=== PATIENT | male | born 1985 | race Caucasian/White ===

== ENCOUNTER 2016-07-20 10:16 | Emergency (ER) | payer OTHER ==
[2016-07-20 12:22] VITALS: BP 130/78
--- NOTE | 2016-07-20 13:17 | UC ---
Throat Pain/Nasal Harsha HPI - HPI Summary HPI Summary: Nasal congestion, L frontal pain, cough, ST starting 2-3 days ago. Has tried OTC decongestants without relief. - History of Current Complaint Chief Complaint: UCRespiratory Stated Complaint: SINUS HEADACHE Time Seen by Provider: 07/20/16 12:59 Hx Obtained From: Patient Onset/Duration: Gradual Onset, Lasting Days Severity: Moderate Cough: Productive Associated Signs & Symptoms: Positive: Sinus Discomfort, Nasal Discharge. Negative: Fever, Vomiting, Rash - Allergies/Home Medications Allergies/Adverse Reactions: Allergies Allergy/AdvReac Type Severity Reaction Status Date / Time No Known Allergies Allergy Verified 07/20/16 11:29 Home Medications: Home Medications Pseudoephedrine HCl [Sudafed 24 Hour] 240 mg PO DAILY PRN 07/20/16 [History Confirmed 07/20/16] PMH/Surg Hx/FS Hx/Imm Hx Endocrine History Of: Denies: Diabetes, Thyroid Disease Cardiovascular History Of: Denies: Cardiac Disorders, Hypertension Respiratory History Of: Denies: COPD, Asthma GI/ History Of: Denies: Ulcer - Surgical History Surgical History: None Surgery Procedure, Year, and Place: t & a; bilat tubes in ears. uretral stents/ kidney stones - Family History Known Family History: Negative: Blood Disorder - Social History Occupation: Employed Full-time Lives: With Family Alcohol Use: Rare Substance Use Type: None Smoking Status (MU): Never Smoked Tobacco Have You Smoked in the Last Year: No - Immunization History Most Recent Influenza Vaccination: none Review of Systems Constitutional: Negative Skin: Negative Eyes: Negative ENT: Sore Throat, Nasal Discharge Respiratory: Cough Cardiovascular: Negative Gastrointestinal: Negative Genitourinary: Negative Motor: Negative Neurovascular: Negative Musculoskeletal: Negative Neurological: Headache Psychological: Negative All Other Systems Reviewed And Are Negative: Yes Physical Exam Triage Information Reviewed: Yes Appearance: Well-Appearing, No Pain Distress, Well-Nourished Vital Signs: Initial Vital Signs Temp 97.7 F 07/20/16 11:30 Pulse 84 07/20/16 11:30 Resp 16 07/20/16 11:30 BP 132/84 07/20/16 11:30 Pulse Ox 100 07/20/16 11:30 Vital Signs Reviewed: Yes Eye Exam: Normal, Other - PERRL Eyes: Positive: Conjunctiva Clear ENT: Positive: Hearing grossly normal, Pharynx normal, Nasal congestion, TMs normal. Negative: Nasal drainage, Tonsillar swelling, Tonsillar exudate Dental Exam: Normal Neck exam: Normal Neck: Positive: Supple, Nontender, No Lymphadenopathy Respiratory Exam: Normal Respiratory: Positive: Chest non-tender, Lungs clear, Normal breath sounds, No respiratory distress, No accessory muscle use Cardiovascular Exam: Normal Cardiovascular: Positive: RRR, No Murmur Musculoskeletal Exam: Normal Musculoskeletal: Positive: ROM Intact Neurological Exam: Normal Neurological: Positive: Alert Psychological Exam: Normal Skin Exam: Normal Throat Pain/Nasal Course/Dx - Differential Dx/Diagnosis Provider Diagnoses: URI, likely viral. acute headache Discharge - Discharge Plan Condition: Stable Disposition: HOME Prescriptions: Naproxen [Naproxen 500 MG TABS] 500 mg PO BID #14 tab Patient Education Materials: Upper Respiratory Infection (ED), Acute Headache ( ED) Forms: *Work Release Referrals: No Primary Care Phys,NOPCP [Primary Care Provider] - Additional Instructions: Make sure you are using pseudoephedrine as a decongestant. SINUS RINSES HAVE BEEN SHOWN TO HELP IMPROVE SYMPTOMS AND SHORTEN THE DURATION OF MILD TO MODERATE SINUSITIS. [facility] MAKES A SQUEEZE BOTTLE THAT YOU CAN USE OVER THE SINK OR IN THE SHOWER. USE ONLY SALINE, AND REPEAT UP TO EVERY 2 HOURS DESIRED. ONLY USE DISTILLED WATER TO MIX UP SALINE, DO NOT USE TAP WATER. Call or return if you develop increasing fever, shortness of breath, chest pain , bloody sputum, or otherwise worsen. If you have not improved at all after several days, contact your primary care physician or return here.
== END 2016-07-20 13:22 | disposition home or self-care (01) ==
LOC: UCEAST 10:16
DX: J06.9 Acute upper respiratory infection, unspecified (principal); R51 Headache; Z87.442 Personal history of urinary calculi
CPT/HCPCS: 99212; G0463

== ENCOUNTER 2017-01-14 14:53 | Emergency (ER) | payer SELFPAY ==
--- NOTE | 2017-01-14 15:00 | ED ---
Laceration/Wound HPI - HPI Summary HPI Summary: 31 year old male presents with laceration of left 4th finger. - History of Current Complaint Stated Complaint: finger LACERATION Time Seen by Provider: 01/14/17 14:59 Hx Obtained From: Patient Mechanism of Injury: Sharp/Blunt Trauma Onset/Duration: Sudden Onset Aggravating: Movement Timing: Constant Onset Severity: Moderate Current Severity: Moderate Pain Scale Used: 0-10 Numeric - 10 - Allergy/Home Medications Allergies/Adverse Reactions: Allergies Allergy/AdvReac Type Severity Reaction Status Date / Time No Known Allergies Allergy Verified 07/20/16 11:29 PMH/Surg Hx/FS Hx/Imm Hx Previously Healthy: Yes Endocrine/Hematology History: Denies: Hx Diabetes, Hx Thyroid Disease Cardiovascular History: Denies: Hx Hypertension Respiratory History: Denies: Hx Asthma, Hx Chronic Obstructive Pulmonary Disease (COPD) GI History: Denies: Hx Ulcer - Surgical History Surgery Procedure, Year, and Place: t & a; bilat tubes in ears. uretral stents/ kidney stones Infectious Disease History: Denies: Hx Clostridium Difficile, Hx Hepatitis, Hx Human Immunodeficiency Virus (HIV), Hx of Known/Suspected MRSA, Hx Shingles, Hx Tuberculosis, Hx Known/ Suspected VRE, Hx Known/Suspected VRSA, History Other Infectious Disease - Family History Known Family History: Negative: Blood Disorder - Social History Alcohol Use: Rare Substance Use Type: Reports: None Smoking Status (MU): Never Smoked Tobacco Have You Smoked in the Last Year: No Review of Systems Constitutional: Negative Eyes: Negative ENT: Negative Cardiovascular: Negative Respiratory: Negative Gastrointestinal: Negative Genitourinary: Negative Musculoskeletal: Negative Positive: Other - left 4th finger laceration Neurological: Negative All Other Systems Reviewed And Are Negative: Yes Physical Exam Triage Information Reviewed: Yes Vital Signs Reviewed: Yes Skin: Positive: Other - laceration left 4th finger Eyes: Positive: Normal ENT: Positive: Normal ENT inspection Neck: Positive: Supple Respiratory/Lung Sounds: Positive: Clear to Auscultation Procedures - Laceration/Wound Repair 1 Location: upper extremity - left finger Description: Irregular Anesthesia: Local Betadine Prep?: Yes Laceration/Wound Explored: clean Closure: Single Layer Suture Type: Other - ethilon Layer Closure?: No Sterile Dressing Applied?: Yes Laceration Repair Course/Dx - Clinical Impression Provider Diagnoses: Laceration of left ring finger Discharge - Discharge Plan Condition: Stable Disposition: HOME Prescriptions: Acetaminop/Codeine 30 MG TAB* [Tylenol/Codeine 30 MG TAB*] 1 tab PO Q8H PRN #9 tab MDD 3 PRN Reason: Pain Sulfamethox/Trimethoprim DS* [Bactrim DS 800/160 TAB*] 1 tab PO BID #14 tab Patient Education Materials: Laceration (ED) Forms: *Work Release Referrals: No Primary Care Phys,NOPCP [Primary Care Provider] -
[2017-01-14] MEDS ORDERED: Lidocaine 1% MPF* 2 ML VIAL ONE (15:07)
[2017-01-14 15:50] VITALS: BP 134/89
== END 2017-01-14 16:12 | disposition home or self-care (01) ==
LOC: UCEAST 14:53
DX: S61.215A Laceration without foreign body of left ring finger without damage to nail, initial encounter (principal); W45.8XXA Other foreign body or object entering through skin, initial encounter; Y93.9 Activity, unspecified; Y92.9 Unspecified place or not applicable
CPT/HCPCS: 12002; 99211; G0463

== ENCOUNTER 2017-01-16 09:30 | Emergency (ER) | payer SELFPAY ==
[2017-01-16 10:22] VITALS: BP 141/92
--- NOTE | 2017-01-16 11:12 | UC ---
HPI Wound/Suture Re-check - HPI Summary HPI Summary: PT HERE FOR WOUND RECHECK. HAD 7 SUTURES PLACED LEFT 4TH FINGER 2 DAYS AGO HERE IN [facility]. PT REPORTS SOME TENDERNESS BUT OVERALL SEEMS TO BE DOING WELL. IS TAKING HIS ABX PRESCRIBED. NO DRAINAGE. NO FEVER. LAST TETANUS 2-3 YEARS AGO. - History Of Current Complaint Chief Complaint: UCSkin Stated Complaint: WOUND CHECK Time Seen by Provider: 01/16/17 10:39 Hx Obtained From: Patient Onset/Duration: Sudden Onset, Lasting Days, Still Present Severity: Moderate Pain Intensity: 4 Pain Scale Used: 0-10 Numeric - Allergies/Home Medications Allergies/Adverse Reactions: Allergies Allergy/AdvReac Type Severity Reaction Status Date / Time No Known Allergies Allergy Verified 01/16/17 10:19 PMH/Surg Hx/FS Hx/Imm Hx Previously Healthy: Yes - Surgical History Surgical History: Yes Surgery Procedure, Year, and Place: t & a; bilat tubes in ears. uretral stents/ kidney stones - Family History Known Family History: Positive: Hypertension Negative: Blood Disorder - Social History Alcohol Use: Rare Substance Use Type: None Smoking Status (MU): Never Smoked Tobacco Have You Smoked in the Last Year: No - Immunization History Most Recent Influenza Vaccination: none Review of Systems Constitutional: Negative Skin: Other - LACERATION WITH SUTURES Respiratory: Negative Cardiovascular: Negative Gastrointestinal: Negative All Other Systems Reviewed And Are Negative: Yes Physical Exam Triage Information Reviewed: Yes Appearance: Well-Appearing, No Pain Distress, Well-Nourished Vital Signs: Initial Vital Signs Temp 97.9 F 01/16/17 10:20 Pulse 93 01/16/17 10:20 Resp 16 01/16/17 10:20 BP 141/92 01/16/17 10:20 Pulse Ox 100 01/16/17 10:20 Vital Signs Reviewed: Yes Eyes: Positive: Conjunctiva Clear ENT: Positive: Hearing grossly normal Neck: Positive: Supple Respiratory: Positive: No respiratory distress, No accessory muscle use Cardiovascular: Positive: Pulses Normal Abdomen Description: Positive: Soft Musculoskeletal: Positive: No Edema Neurological: Positive: Alert Psychological: Positive: Age Appropriate Behavior Skin: Positive: Other - LACERATION DISTAL LEFT 4TH FINGER INTACT. SKIN EDGES WELL APPROXIMATED. SOME CRUSTING. MILDLY TENDER. NO DRAINAGE. Course/Dx - Course Course Of Treatment: WOUND CLEANSED AND REDRESSED. RETURN FOR SUTURE REMOVAL IN 7-8 DAYS. CONTINUE ABX TO COMPLETE COURSE. - Differential Dx - Laceration/Wound Provider Diagnoses: WOUND RECHECK Discharge - Discharge Plan Condition: Stable Disposition: HOME Patient Education Materials: Care For Your Stitches (ED) Forms: *Work Release Referrals: No Primary Care Phys,NOPCP [Primary Care Provider] - Additional Instructions: THE STITCHES LOOK GOOD. APPLY THIN LAYER ANTIBIOTIC OINTMENT UNDER BANDAGE FOR THE NEXT 2-3 DAYS ONLY. CHANGE BANDAGE DAILY AND NEEDED IF IT BECOMES SOILED OR WET. SEEK FOLLOW-UP IF YOU DEVELOP SPREADING REDNESS OF THE SKIN, PURULENT DRAINAGE, FEVER, INCREASED PAIN OR ANY OTHER CONCERNING SYMPTOMS. RETURN FOR SUTURE REMOVAL IN 7-8 DAYS CALL THE NUMBER BELOW FOR ASSISTANCE IN ESTABLISHING WITH A PCP An additional resource available to assist in finding the appropriate physician for your health care needs is [facility] ([facility]). You may contact them by calling [phone].
== END 2017-01-16 11:21 | disposition home or self-care (01) ==
LOC: UCEAST 09:30
DX: Z48.00 Encounter for change or removal of nonsurgical wound dressing (principal)
CPT/HCPCS: 99213; G0463

== ENCOUNTER 2017-01-24 08:53 | Emergency (ER) | payer OTHER ==
[2017-01-24 09:15] VITALS: BP 136/81
--- NOTE | 2017-01-24 09:16 | ED ---
Skin Complaint - History of Current Complaint Chief Complaint: UCLaceration Time Seen by Provider: 01/24/17 09:13 Stated Complaint: STITCHES REMOVED - Allergy/Home Medications Allergies/Adverse Reactions: Allergies Allergy/AdvReac Type Severity Reaction Status Date / Time No Known Allergies Allergy Verified 01/24/17 09:15 PMH/Surg Hx/FS Hx/Imm Hx Endocrine/Hematology History: Denies: Hx Diabetes, Hx Thyroid Disease Cardiovascular History: Denies: Hx Hypertension Respiratory History: Denies: Hx Asthma, Hx Chronic Obstructive Pulmonary Disease (COPD) GI History: Denies: Hx Ulcer - Surgical History Surgery Procedure, Year, and Place: t & a; bilat tubes in ears. uretral stents/ kidney stones Infectious Disease History: No Infectious Disease History: Denies: Hx Clostridium Difficile, Hx Hepatitis, Hx Human Immunodeficiency Virus (HIV), Hx of Known/Suspected MRSA, Hx Shingles, Hx Tuberculosis, Hx Known/ Suspected VRE, Hx Known/Suspected VRSA, History Other Infectious Disease, Traveled Outside the [place] in Last 30 Days - Family History Known Family History: Positive: Hypertension Negative: Blood Disorder - Social History Alcohol Use: Occasionally Substance Use Type: Reports: None Smoking Status (MU): Never Smoked Tobacco Have You Smoked in the Last Year: No Physical Exam Vital Signs On Initial Exam: Initial Vitals Temp Pulse Resp BP Pulse Ox 97.2 F 94 16 136/81 100 01/24/17 09:07 01/24/17 09:07 01/24/17 09:07 01/24/17 09:07 01/24/17 09:07 Diagnostics - Vital Signs Vital Signs Temp Pulse Resp BP Pulse Ox 01/24/17 09:07 97.2 F 94 16 136/81 100 - Laboratory Lab Statement: Any lab studies that have been ordered have been reviewed, and results considered in the medical decision making process.
--- NOTE | 2017-01-24 09:18 | UC ---
Skin Complaint HPI - HPI Summary HPI Summary: Pt presents to have 7 sutures removed from left ring finger. wound c/d/i No questions, concerns Pt completed abx no fever, chills tdap utd medications reviewed this visit - History of Current Complaint Chief Complaint: UCLaceration Time Seen by Provider: 01/24/17 09:13 Stated Complaint: STITCHES REMOVED Hx Obtained From: Patient, Medical Records Onset Severity: Mild Current Severity: None Aggravating Factor(s): Nothing Alleviating Factor(s): Nothing - Allergy/Home Medications Allergies/Adverse Reactions: Allergies Allergy/AdvReac Type Severity Reaction Status Date / Time No Known Allergies Allergy Verified 01/24/17 09:15 Review of Systems Constitutional: Negative Skin: Other - sutures in wound All Other Systems Reviewed And Are Negative: Yes PMH/Surg Hx/FS Hx/Imm Hx Previously Healthy: Yes - Surgical History Surgical History: Yes Surgery Procedure, Year, and Place: t & a; bilat tubes in ears. uretral stents/ kidney stones - Family History Known Family History: Positive: Hypertension Negative: Blood Disorder - Social History Alcohol Use: Occasionally Substance Use Type: None Smoking Status (MU): Never Smoked Tobacco Have You Smoked in the Last Year: No - Immunization History Most Recent Influenza Vaccination: none Physical Exam Triage Information Reviewed: Yes Vital Signs: Initial Vital Signs Temp 97.2 F 01/24/17 09:07 Pulse 94 01/24/17 09:07 Resp 16 01/24/17 09:07 BP 136/81 01/24/17 09:07 Pulse Ox 100 01/24/17 09:07 Vital Signs Reviewed: Yes Skin: Positive: Other - left ring - sutures c/d/i no erythema, no fluctance, discharge, odor Course/Dx - Course Course Of Treatment: Pt with well healed wound. sutures removed without difficult. wound c/d/i. wound care discussed. questions answered - Diagnoses Provider Diagnoses: suture removal Discharge - Discharge Plan Condition: Stable Disposition: HOME Patient Education Materials: Stitches Removal (ED) Referrals: No Primary Care Phys,NOPCP [Primary Care Provider] - Additional Instructions: - keep wound clean and dry - Monitor for signs of infection - reddness, red streaking, odor, drainage - Call your doctor or return with questions or concerns
== END 2017-01-24 09:37 | disposition home or self-care (01) ==
LOC: UCEAST 08:53
DX: Z48.02 Encounter for removal of sutures (principal)